=== PATIENT | male | born 1990 | race Caucasian/White ===

== ENCOUNTER 2023-07-12 21:12 | Emergency (ER) | payer MEDICAID ==
[~2023-07-12] VITALS: Ht 175.3 cm; Wt 83.9 kg
[2023-07-12 21:34] VITALS: TEMP 98
[2023-07-13] MEDS ORDERED: ACET325C7 PO (00:36)
[2023-07-13] MEDS ORDERED: IBUP-1955 PO (00:36)
[2023-07-13 00:38] VITALS: BP 136/98; O2SAT 98
== END 2023-07-13 01:00 | disposition home or self-care (01) ==
LOC: ER 21:19
DX: R07.9 Chest pain, unspecified (principal); Z60.2 Problems related to living alone; V43.52XA Car driver injured in collision with other type car in traffic accident, initial encounter; Y93.89 Activity, other specified; Y92.89 Other specified places as the place of occurrence of the external cause; Y99.8 Other external cause status
CPT/HCPCS: 71111-TC